=== PATIENT | female | born 1990 | race Caucasian/White ===

== ENCOUNTER → 2022-11-28 06:42 | Outpatient (CLI) | payer OTHER, MEDICAID, SELFPAY ==
--- NOTE | 2022-11-28 06:50 | DI.US.S_ITS ---
PROCEDURE: US OB >= 14 WEEKS FETUS INDICATIONS: ANATOMY SCAN TECHNIQUE: Real-time scanning was performed of the fetus, with image documentation and biometric measurements. COMPARISON: None. FINDINGS: General: A single living intrauterine gestation is present. Presentation: Vertex. Placenta: Placental position is posterior , without previa. Amniotic fluid index: 15.3 cm, normal range is 5-24 cm. Single deepest vertical pocket is 5.1 cm. heart rate: 155 beats per minute. Maternal cervical canal: 3.9 cm long. Normal lower limit is 2.5 cm. biometrics: Biparietal diameter: 5.6 cm, 23 week 0 day Head circumference: 20.3 cm, 22 week 3 day Abdominal circumference: 18.3 cm, 23 week 1 day Femur length: 4.0 cm, 23 week 0 day Clinically estimated gestational age: 22 week 3 day Composite gestational age from present scan: 22 week 6 day Estimated weight and percentile: 559 g, 75th percentile by working GIULIA 03/31/2023 Anatomic survey: Neuro: Ventricles are non-dilated at less than 10 mm. Cisterna magna is normal at 3-11 mm. Cerebellum is normal in size and morphology. Nuchal skin fold: Normal at less than 6 mm between 14-21 weeks gestational age. Face: Nose and lips, facial profile are normal. Spine: No evidence for spina bifida. Heart: 4-chambered heart is present, with normal ventricular outflow tracts. Diaphragm: Diaphragm is intact. Stomach: Left-sided stomach is present. Kidneys: No hydronephrosis. Normal is less than 5 mm in 2nd trimester, less than 7 mm in 3rd trimester. Cord: 3-vessel cord has orthotopic insertion. Bladder: Normal in size. Extremities: All 4 extremities identified. IMPRESSION: Single live intrauterine consistent with 22 week 6 day gestation by current ultrasound. Normal anatomic survey Approved by: Ariel Canas M.D. on 11/28/2022 at 19:30
== END ==
PROVIDERS: Referring Provider Advanced Practice Midwife; Visit Provider Advanced Practice Midwife
DX: Z36.4 Encounter for antenatal screening for fetal growth retardation (principal); Z3A.22 22 weeks gestation of pregnancy
CPT/HCPCS: 76811

== ENCOUNTER → 2023-01-16 13:13 | Outpatient (CLI) | payer OTHER, MEDICAID, SELFPAY ==
--- NOTE | 2023-01-16 13:14 | DI.US.S_ITS ---
PROCEDURE: US OB LIMITED INDICATIONS: GROWTH OUTSIDE/PRIOR DATING DATA: Last menstrual period (LMP): 06/24/2023. LMP-based estimated date of delivery (GIULIA): 03/31/2023. First dating scan (date and location): 11/28/2022. Estimated date of delivery (GIULIA) from first dating scan: 03/28/2023. The calculations are made using the working GIULIA of 03/31/2023. TECHNIQUE: Real-time scanning was performed of the fetus, with image documentation. Endovaginal scanning: Not performed COMPARISON: None. FINDINGS: A single living intrauterine gestation is present. Presentation: Vertex. Placenta: Placental position is posterior into the right, without previa. Amniotic fluid index: 15.4 cm, normal range is 5-24 cm. Single deepest vertical pocket is 4.6 cm. heart rate: 153 beats per minute. Maternal cervical canal: 4.3 cm long. Normal lower limit is 2.5 cm. Clinically estimated gestational age: 29 weeks 3 days Estimated gestational age from initial scan: 30 weeks 5 days. Estimated weight: 1605 g, 79th percentile IMPRESSION: 1. Living 3rd trimester intrauterine . 2. Current ultrasound age is 9 days greater than clinical age based on LMP. Dictated by: Jaison Sanchez M.D. on 01/16/2023 at 14:57 Approved by: Jaison Sanchez M.D. on 01/16/2023 at 15:33
== END ==
PROVIDERS: Referring Provider Advanced Practice Midwife; Visit Provider Advanced Practice Midwife
DX: Z36.4 Encounter for antenatal screening for fetal growth retardation (principal); O14.10 Severe pre-eclampsia, unspecified trimester; Z3A.30 30 weeks gestation of pregnancy
CPT/HCPCS: 76815

== ENCOUNTER → 2023-02-24 12:46 | Outpatient (CLI) | payer OTHER, MEDICAID, SELFPAY ==
--- NOTE | 2023-02-24 12:47 | DI.US.S_ITS ---
PROCEDURE: US OB FOLLOW UP INDICATIONS: GROWTH CHECK OUTSIDE/PRIOR DATING DATA: Last menstrual period (LMP): 06/24/2023. LMP-based estimated date of delivery (GIULIA): 03/31/2023. TECHNIQUE: Real-time scanning was performed of the fetus, with image documentation. COMPARISON: [facility], OB LIMITED, 01/16/2023, 13:45. FINDINGS: A single living intrauterine gestation is present. Presentation: Vertex. Placenta: Placental position is posterior, without previa. Amniotic fluid index: 16.1 cm, normal range is 5-24 cm. Single deepest vertical pocket is 6.9 cm. heart rate: 136 beats per minute. Maternal cervical canal: Not well seen. Biometric measurements: BPD: 9 cm, 36 weeks 2 days HC: 32.2 cm, 36 weeks 3 days AC: 32.5 cm, 36 weeks 3 days FL: 6.7 cm, 34 weeks 2 days Clinically estimated gestational age: 35 weeks 0 days Estimated gestational age from today's scan: 35 weeks 6 days. Estimated weight 2789 g, 72 percentile. IMPRESSION: 1. Shrestha living intrauterine at 35 weeks 6 days based on today's ultrasound. This is concordant with prior dating. Fetus is in the 72 percentile for weight. Vertex position. 2. Normal placenta and amniotic fluid. Dictated by: Alfa Shultz M.D. on 02/24/2023 at 15:49 Approved by: Alfa Shultz M.D. on 02/24/2023 at 15:54
== END ==
PROVIDERS: Referring Provider Advanced Practice Midwife; Visit Provider Advanced Practice Midwife
DX: Z36.4 Encounter for antenatal screening for fetal growth retardation (principal); O14.10 Severe pre-eclampsia, unspecified trimester; Z3A.35 35 weeks gestation of pregnancy
CPT/HCPCS: 76816

== ENCOUNTER → 2023-03-08 19:55 | Outpatient (ROUT) | payer OTHER, MEDICAID, SELFPAY | PROVIDERS: Visit Provider Advanced Practice Midwife | DX: Z34.90 Encounter for supervision of normal pregnancy, unspecified, unspecified trimester (principal); Z36.85 Encounter for antenatal screening for Streptococcus B; Z3A.36 36 weeks gestation of pregnancy | CPT/HCPCS: 87081 ==

== ENCOUNTER 2023-08-22 06:33 | Day surgery (SDC) | payer OTHER, SELFPAY ==
[2023-08-20 10:51] VITALS: BMI 31.4
[2023-08-22] VITALS (8 sets, daily range): BP systolic 106–125; BP diastolic 60–71; PULSE 53–69; RESP 12–19; TEMP 36.1–36.8; O2SAT 97–99; BMI 31.4
--- NOTE | 2023-08-22 | PATH_ITS ---
[facility] Accession Number: [id number] No. of containers..02 Tissue . 01 Material submitted: . PART A: cervix - LEEP CONE CUT AT 12 O'CLOCK PART B: endocervix - ENDOCERVICAL CURETTINGS . 01 Diagnosis: A. Uterine Cervix, LEEP Conization (Cut at 12 o'clock): High-grade squamous intraepithelial lesion (SIENNA-3/severe squamous dysplasia) extensively involving the endocervical glands. Background low-grade squamous intraepithelial lesion/SIENNA-1/mild dysplasia and prior biopsy changes. Negative for glandular dysplasia and invasive carcinoma. Surgical margins: Severe squamous dysplasia involves focally a cauterized ectocervical margin. Remaining margins are not involved. . B. Endocervix, Curettings: Scant benign endocervical glandular epithelium and mucoinflammatory debris. Negative for dysplasia and malignancy. [facility] 09/02/2023 1634 Local . 01 Electronically signed: . Katlin Perez MD, Pathologist NPI- [id number] . 01 Gross description: . A. Received in formalin labeled with the patient's name, , and LEEP cone cut at 12 o'clock, and consists of a linear fragment of cervix with a cut at 12 o'clock per the requisition. The specimen is reapproximated to measure 1.3 cm from 12 to 6, 2.0 cm from 3 to 9, and 0.4 cm thick. The ectocervix is benavides and finely granular. The endocervical margin is inked orange while the remaining stromal margins are inked blue. The specimen is serially sectioned and submitted entirely as follows: A1: 12 to 3. A2: 3 to 6. A3: 6 to 9. A4: 9 to 12. B. Received in formalin labeled with the patient's name, , and endocervical curettings, and consists of multiple benavides soft tissue fragments admixed with mucoid material aggregating to 2.3 x 1.4 x 0.2 cm. Filtered and submitted entirely in cassette B1. ([id number]) /ESTEFANIA 08/23/2023 2137 Local . 01 Pathologist provided ICD-10: R87.613, N87.0, D06.9 . 01 CPT . 364840, 242192 Specimen Comment: A courtesy copy of this report has been sent to [phone] Performed at: 01 [facility] [address], [place], [place] [id number] MD Lj Foss MD Phone: [phone]
[2023-08-22] MEDS: LACTATED RINGERS 1,000 ML 84 ML IV (06:44)
--- NOTE | 2023-08-22 07:32 | PM.PREOP ---
Pre-operative Note COVID-19 COVID-19 status: Not tested Interval Note History & Physical reviewed/Exam performed by Physician: Yes Changes to H&P: No
--- NOTE | 2023-08-22 08:10 | SUR.OPER ---
Lithotomy on padded OR bed, head on pillow, arms secured on padded arm boards at <90 degrees abduction. Legs secured in padded yellow fins stirrups.
--- NOTE | 2023-08-22 08:37 | P.OP_ITS ---
Operative Date/Time/Diagnoses Date of procedure: 08/22/23 Time of procedure: 07:50 Pre-op diagnosis: High-grade squamous dysplasia of the cervix Post-op diagnosis: same Procedure & Clinicians Procedure: Procedures Operation Date: 08/22/23 07:45 Actual Procedure Side Surgeon p LEEP Procedure Daniel Turk MD Indications: Radha Pascual is 32 yo , LMP about 2 weeks ago who was diagnosed on colposcopically directed biopsy with high-grade squamous dysplasia of the cervix and is scheduled for LEEP procedure 08/22/2023. She presents today for her scheduled surgery. Surgeon: Daniel Turk Anesthesia Type: General Operative Notes Findings: Well-circumscribed area of aceto-white epithelium transformation zone, fully excised via LEEP. Closure Type: not applicable Specimen(s): other (LEEP cone, cut 12:00, endocervical curettings) Estimated blood loss (mL): 5 Blood products transfused: none Procedure in detail: With the patient under satisfactory general anesthesia in the modified dorsal lithotomy position, the external genitalia and lower abdomen were prepped and draped in the usual for LEEP. A pre-surgical safety time-out was then taken in accordance with [facility] Main OR protocols. LEEP speculum was then placed in the vagina and the cervix visualized. The upper vagina was filled vinegar and sufficient time was permitted to allow full development of all aceto-white epithelium. The areas of abnormality were well-circumscribed and removed with a 20 x 10 mm electrode using 50 w pure cut power. The specimen was then cut at 12:00 p.m. and submitted as a LEEP cone for pathologic evaluation. ECC was then obtained submitted as a separate pathologic specimen. The cone bed was then rendered hemostatic with ball cautery at 60 w coagulation power. Minimal blood loss was noted and complete hemostasis achieved. The operation was terminated by removal of the speculum from the vagina. The patient was then awakened anesthesia and transferred to PACU for period of observation and recovery after having tolerated procedure well. Complications: none Post-operative Condition: stable Disposition: PACU Plan for aftercare: Routine postop care with follow-up planned for 2 weeks postop
== END 2023-08-22 09:16 | disposition home or self-care (01) ==
PROVIDERS: Referring Provider Obstetrics & Gynecology; Visit Provider Obstetrics & Gynecology
PROC: 0UBC7ZZ Excision of Cervix, Via Natural or Artificial Opening (ICD-10-PCS; CPT 57522; principal; 2023-08-22 07:45)
DX: D06.0 Carcinoma in situ of endocervix (principal)
CPT/HCPCS: 57522; J1100; J2250; J2405; J2704; J3010

== ENCOUNTER → 2024-04-12 14:37 | Outpatient (CLI) | payer OTHER, SELFPAY ==
[2024-04-12 15:26] LABS: Influenza A - CEPHEID Flu A NEGATIVE (NEGATIVE); Influenza B - CEPHEID Flu B NEGATIVE (NEGATIVE); Respiratory Syncytial Virus Negative (Negative)
[2024-04-12 15:27] LABS: COVID-19 CEPHEID 4-PLEX PCR Negative (Negative)
== END ==
PROVIDERS: Visit Provider Physician Assistant Surgical
DX: R19.7 Diarrhea, unspecified (principal)
CPT/HCPCS: 0241U